=== PATIENT | female | born 1950 | race Two or more races ===

== ENCOUNTER 2025-02-19 10:45 | Emergency (ER) | payer OTHER ==
[~2025-02-19] VITALS: Ht 162.6 cm; Wt 56.7 kg
[2025-02-19] MEDS ORDERED: DONEPEZIL HCL23 MG PO (11:46)
[2025-02-19] MEDS ORDERED: 0.9 % SODIUM CHLORIDE 1,000 ML IV SCH (12:00)
[2025-02-19 12:59] LABS: HEMATOCRIT 47.7 % (36.0-45.00); HEMOGLOBIN 16.6 g/dL (12.0-15.00); MEAN CELL VOLUME 85.7 fL (80.00-100.00); MEAN CORPUSCULAR HEMOGLOBIN 29.8 pg (27.00-32.0); MEAN CORPUSCULAR HGB CONC 34.8 g/dl (32.0-36.0); PLATELET COUNT 161 K/uL (150-450); RED BLOOD COUNT 5.57 M/uL (4.00-6.00)
[2025-02-19 13:07] LABS: CALCIUM 8.9 mg/dL (8.5-10.1); CREATININE SERUM 0.94 mg/dL (0.55-1.02); GFR 57.9; POTASSIUM 3.66 mEq/L (3.5-5.1)
[2025-02-19 13:32] LABS: PH,URINE 5.5 (5.0-8.0); URINE APPEARANCE Turbid; URINE BILIRRUBIN Small (NEGATIVE); URINE BLOOD Moderate; URINE COLOR Dark Yellow; URINE GLUCOSE Negative (NEGATIVE); URINE KETONE 15 (NEGATIVE); URINE LEUKOCYTE Moderate; URINE NITRATE Negative
[2025-02-19 13:38] LABS: URINE CAST 5.15 uL (0.0-1.40); URINE EPITHELIAL CELLS 119.2 uL (0.0-38.8); URINE RBC 233.9 uL (0.0-20.8); URINE WBC 191.7 uL (0.0-23.2)
[2025-02-19 14:01] LABS: URINE BACTERIA > 9821.5 uL (0.0-1933); URINE PROTEIN 100 (NEGATIVE)
[2025-02-19 14:03] LABS: URINE CRYSTALS MODERATE /HPF
[2025-02-19] MEDS ORDERED: CEFTRIAXONE SODIUM 1,000 MG VIAL IV ONE (14:45)
[2025-02-19] MEDS ORDERED: CEFTRIAXONE SODIUM 1,000 MG VIAL ONE (16:00)
== END 2025-02-19 16:33 | disposition home or self-care (01) ==
LOC: ER 10:45
PROVIDERS: Emergency Medicine
DX: N39.0 Urinary tract infection, site not specified (principal); R51.9 Headache, unspecified; R11.10 Vomiting, unspecified
CPT/HCPCS: 36415; 70450; 96365; 96366; 99284; J0696; J7030

== ENCOUNTER 2025-03-22 10:11 | Outpatient (CLI) | payer OTHER ==
[~2025-03-22 10:11] MED LIST: DONEPEZIL HCL23 MG PO
== END 2025-03-22 10:13 | disposition home or self-care (01) ==
LOC: NUCLEAR 10:11
PROVIDERS: ATTEND Internal Medicine
DX: R41.3 Other amnesia (principal); F03.90 Unspecified dementia, unspecified severity, without behavioral disturbance, psychotic disturbance, mood disturbance, and anxiety
CPT/HCPCS: 78803; A9557